=== PATIENT | female | born 1975 | race Caucasian/White ===

== ENCOUNTER 2020-05-12 21:48 | Inpatient (IN) | payer OTHER, MEDICAID ==
[~2020-05-12] VITALS: Ht 157.5 cm; Wt 59.9 kg
[2020-05-12 21:50] VITALS: BP 86/55
[2020-05-12 22:24] LABS: ABSOLUTE EOSINOPHILS 0.2 thou/uL (0.0-0.7); ABSOLUTE LYMPHOCYTES 1.4 thou/uL (0.8-5.3); ABSOLUTE MONOCYTES 0.5 thou/uL (0.0-1.2); ABSOLUTE NEUTROPHILS 5.5 thou/uL (1.6-8.1); BASOPHILS 0.6 %; EOSINOPHILS 3.2 %; HEMATOCRIT 41.2 % (37.0-47.0); HEMOGLOBIN 13.8 gm/dL (12.0-15.0); LYMPHOCYTES 18.2 %; MCH 31.1 pg (26.0-34.0); MCHC 33.6 g/dL (28.0-37.0); MCV 92.4 fL (80.0-100.0); MONOCYTES 6.6 %; MPV 8.9 fl. (7.2-11.1); NUCLEATED RBCS 0 /100WBC; PLATELET COUNT* 112 thou/uL (150-400); POLYS 71.4 %; RBC 4.45 mil/uL (4.20-5.00); RDW-CV 13.9 % (10.5-14.5); WBC 7.6 thou/uL (4.0-11.0)
[2020-05-12 22:31] LABS: CALCIUM 8.1 mg/dL (8.5-10.1); CREATININE 0.7 mg/dL (0.6-1.3); POTASSIUM 3.8 mmol/L (3.5-5.1)
[2020-05-12 22:35] LABS: MAGNESIUM 2.2 mg/dL (1.8-2.4); TOTAL BILIRUBIN 0.6 mg/dL (<0.1-1.0); TOTAL PROTEIN 6.5 g/dL (6.4-8.2)
[2020-05-13 00:14] LABS: URINE BILIRUBIN NEGATIVE (Negative); URINE BLOOD NEGATIVE (Negative); URINE CLARITY CLEAR; URINE COLOR YELLOW; URINE GLUCOSE-RANDOM NEGATIVE (Negative); URINE KETONES NEGATIVE (Negative); URINE LEUKOCYTES-REFLEX NEGATIVE (Negative); URINE NITRITE-REFLEX NEGATIVE (Negative); URINE PROTEIN NEGATIVE (Negative); URINE UROBILINOGEN 0.2 E.U./dl (0.2-1.0)
[2020-05-13 00:22] LABS: AMP/METHAMP POSITIVE (Negative); BARBITURATES Negative (Negative); BENZODIAZEPINES Negative (Negative); COCAINE Negative (Negative); METHADONE Negative (Negative); OPIATES Negative (Negative); PCP Negative (Negative); THC Negative (Negative)
[2020-05-13 03:00] VITALS: BP 93/57
[2020-05-13 03:30] VITALS: BP 87/57
[2020-05-13 07:30] LABS: INR 1.1; PROTIME 11.4 Seconds (9.20-11.50)
[2020-05-13 08:36] LABS: ABSOLUTE BASOPHILS 0.1 thou/uL (0.0-0.2); ABSOLUTE EOSINOPHILS 0.2 thou/uL (0.0-0.7); ABSOLUTE LYMPHOCYTES 1.8 thou/uL (0.8-5.3); ABSOLUTE MONOCYTES 0.5 thou/uL (0.0-1.2); ABSOLUTE NEUTROPHILS 4.3 thou/uL (1.6-8.1); BASOPHILS 0.7 %; EOSINOPHILS 3.3 %; HEMATOCRIT 38.8 % (37.0-47.0); LYMPHOCYTES 26.4 %; MCH 30.8 pg (26.0-34.0); MCHC 33.5 g/dL (28.0-37.0); MCV 92.1 fL (80.0-100.0); MONOCYTES 7.4 %; MPV 9.1 fl. (7.2-11.1); NUCLEATED RBCS 0 /100WBC; PLATELET COUNT* 115 thou/uL (150-400); POLYS 62.2 %; RBC 4.21 mil/uL (4.20-5.00)
[2020-05-13 08:45] LABS: ALBUMIN 2.6 g/dL (3.4-5.0); CALCIUM 7.5 mg/dL (8.5-10.1); CREATININE 0.7 mg/dL (0.6-1.3); POTASSIUM 3.8 mmol/L (3.5-5.1); TOTAL BILIRUBIN 0.7 mg/dL (<0.1-1.0); TOTAL PROTEIN 5.8 g/dL (6.4-8.2)
--- NOTE | 2020-05-13 16:24 | EKG ---
[place] [address] ELECTROCARDIOGRAM REPORT Name: COLT WRIGHT Room: [address] ADM IN M.R.#: [id number] Admission: 05/13/20 Attend Phys: Ana Maria Maza, Discharge: Date of : 71 Date of Service: 05/12/202150 Report #: [id number] THIS REPORT FOR: //name// [facility] ED Test Date: 2020-05-12 Test Time: 21:51:01 Pat Name: COLT CHRISTINE Department: Room: [address] Gender: F Demo Event Specialist: ARNAV : 1975 Requested By: Ariana Galvan Order Number: [id number] Amina MD: Everett Cortez Measurements Intervals [place] Rate: 80 P: 67 MI: 117 QRS: 84 QRSD: 89 T: 32 QT: 402 QTc: 464 Interpretive Statements Sinus rhythm Borderline short MI interval No previous ECG available for comparison Electronically Signed On 05-13-2020 16:24:29 EMERGENCY GENERATOR MECHANIC by Everett Cortez [email or web address] <ELECTRONICALLY SIGNED> By: Everett Cortez MD, FACC 05/13/20 1624 50 50 Everett Cortez MD, [facility] /EPI
[2020-05-13 17:02] VITALS: BP 96/48
[2020-05-13 20:15] VITALS: BP 121/68
[2020-05-14 00:18] VITALS: BP 100/53
[2020-05-14 03:06] LABS: HEPATITIS B SURFACE AG Negative (Negative)
[2020-05-14 04:00] VITALS: BP 90/59
[2020-05-14 08:00] VITALS: BP 89/52
[2020-05-14 12:51] VITALS: BP 123/93
[2020-05-14] MEDS ORDERED: CIPRO500 MG PO (15:12)
[2020-05-14] MEDS ORDERED: FLAGYL500 M1 PO (15:12)
[2020-05-14 15:20] VITALS: BP 123/93
[2020-05-14 15:21] VITALS: BP 123/93
== END 2020-05-14 15:50 | disposition home or self-care (01) | DRG 372 ==
LOC: M.ERS 21:48 → M.TBA-ER 05-13 00:18 → M.2W 05-13 00:18
PROVIDERS: Emergency Medicine; Internal Medicine Gastroenterology; Surgery; ADMIT Internal Medicine; ATTEND Internal Medicine
DX: A04.9 Bacterial intestinal infection, unspecified (principal); E44.0 Moderate protein-calorie malnutrition; K76.6 Portal hypertension; K70.30 Alcoholic cirrhosis of liver without ascites; F17.210 Nicotine dependence, cigarettes, uncomplicated; Z80.0 Family history of malignant neoplasm of digestive organs; R16.1 Splenomegaly, not elsewhere classified; F12.93 Cannabis use, unspecified with withdrawal; Z20.828 Contact with and (suspected) exposure to other viral communicable diseases; Z68.24 Body mass index [BMI] 24.0-24.9, adult; Z79.899 Other long term (current) drug therapy

== ENCOUNTER 2020-11-08 01:52 | Emergency (ER) | payer MEDICAID ==
[~2020-11-08] VITALS: Ht 157.5 cm; Wt 54.0 kg
[~2020-11-08 01:52] MED LIST: CIPRO500 MG PO; FLAGYL500 M1 PO
[2020-11-08 01:56] VITALS: BP 119/93
== END 2020-11-08 04:05 | disposition home or self-care (01) ==
LOC: M.ERS 01:52
DX: M54.2 Cervicalgia (principal); M54.6 Pain in thoracic spine; Y08.89XA Assault by other specified means, initial encounter; Y93.89 Activity, other specified; Y92.89 Other specified places as the place of occurrence of the external cause; Y99.8 Other external cause status